=== PATIENT | female | born 1955 | race Caucasian/White ===

== ENCOUNTER → 2022-02-13 13:10 | Outpatient (CLI) | payer OTHER, SELFPAY ==
--- NOTE | ~2022-02-13 | MM_ITS ---
EXAMINATION: MM screening [facility] BI w montrell HISTORY: Screening TECHNIQUE: Craniocaudal and mediolateral oblique 3-D tomosynthesis images were obtained and synthetic 2-D images were generated. CAD analysis was submitted and interpreted. COMPARISON: Comparison to multiple prior studies sequentially, with oldest reviewed study dated 2017. BREAST PARENCHYMAL COMPOSITION: There are scattered areas of fibroglandular density. FINDINGS: There is no evidence of suspicious mass, calcification, or architectural distortion to sugg est malignancy in either breast. There has been no suspicious interval change. IMPRESSION: 1. No mammographic evidence of malignancy. 2. Recommend routine screening mammography in one year. BI-RADS Category 1: Negative Reviewed, dictated and finalized at location A.
== END ==
PROVIDERS: PCP Nurse Practitioner; Visit Provider Nurse Practitioner
DX: Z12.31 Encounter for screening mammogram for malignant neoplasm of breast (principal)
CPT/HCPCS: 77063; 77067

== ENCOUNTER → 2022-04-19 13:12 | Outpatient (CLI) | payer OTHER, SELFPAY ==
--- NOTE | ~2022-04-19 | DEXA_ITS ---
Bone Density Report Name: TRISTIN NEAL Age: 66 Sex: Female Ethnicity: White Date of : 1955 Indication: postmenopausal; screening for osteoporosis; height loss; hysterectomy; Referring Provider: Maxi, Zina Study: Bone densitometry was performed. Exam Date: April 19, 2022 Accession number: [id number] Bone Density: Region BMD T-score Z-score Classification AP Spine (L1-L4) 0.916 -1.2 0.7 Osteopenia Femoral Neck (Left) 0.707 -1.3 0.3 Osteopenia Total Hip (Left) 0.828 -0.9 0.4 Normal Femoral Neck (Right) 0.664 -1.7 -0.1 Osteopenia Total Hip (Right) 0.773 -1.4 0.0 Osteopenia Total Hip Mean 0.801 -1.2 0.2 Osteopenia World Health Organization criteria for BMD impression classify patients as: Normal (T-score at or above -1.0), Osteopenia (T-score between -1.0 and -2.5), or Osteoporosis (T-score at or below -2.5). 10-year Fracture Risk(1): Major Osteoporotic Fracture 9.8% Hip Fracture 1.3% Reported Risk Factors: [place] (), Neck BMD=0.664, BMI=25.4 (1) FRAX(R) Version 3.08. Fracture probability calculated for an untreated patient. Fracture probability may be lower if the patient has received treatment. Clinical Information Provided by Patient: Has used the following medications: Calcium, MULT VIT Has the following medical conditions: Hysterectomy Patient maximum height was 66.5 Menopause Age: 34 Drinks caffeinated beverages Onset of menses at age 13 Number of children 2 Impression: The patient has low bone mass, based on the Right Femoral Neck T-score. The patient has an estimated ten-year risk of hip fracture of 1.3% and an estimated ten-year risk of major fracture of 9.8%, based on the WHO FRAX algorithm. Discussion: BONE DENSITY IS LOW AT ONE OR MORE SKELETAL SITES. This patient's lowest T-score is low at one or more skeletal sites. It meets the World Health Organization's (WHO) criteria for ?low bone mass? (T-score between -1.0 and -2.5). The patient's 10-year risk of fracture as calculated by FRAX is less than the threshold where pharmacological therapy is recommended by the National Osteoporosis Foundation (NOF). However, all treatment decisions require clinical judgment and consideration of individual patient factors, including patient preferences, comorbidities, previous drug use, risk factors not captured in the FRAX model (e.g., frailty, falls, vitamin D deficiency, increased bone turnover, interval significant decline in bone density) and possible under or overestimation of fracture risk by FRAX. The patient should follow a healthful lifestyle (good nutrition with adequate calcium and vitamin D, and appropriate weight-bearing exercise). Follow-Up: Consider repeating this study in 2 to 3 years to reassess this patient's status, or sooner if there is some new
== END ==
PROVIDERS: PCP Nurse Practitioner; Visit Provider Nurse Practitioner
DX: Z78.0 Asymptomatic menopausal state (principal); Z13.820 Encounter for screening for osteoporosis; M85.88 Other specified disorders of bone density and structure, other site; M85.851 Other specified disorders of bone density and structure, right thigh; M85.852 Other specified disorders of bone density and structure, left thigh
CPT/HCPCS: 77080

== ENCOUNTER → 2023-04-25 08:15 | Outpatient (CLI) | payer OTHER, SELFPAY ==
--- NOTE | ~2023-04-25 | MM_ITS ---
EXAMINATION: MM screening [facility]osh BI w montrell HISTORY: Screening mammogram TECHNIQUE: Craniocaudal and mediolateral oblique 3-D tomosynthesis images were obtained and synthetic 2-D images were generated. CAD analysis was submitted and interpreted. COMPARISON: 02/13/2022, 08/26/2019, 07/16/2018 bilateral screening mammogram examinations BREAST PARENCHYMAL COMPOSITION: There are scattered areas of fibroglandular density. FINDINGS: Occasional benign calcifications. There is no evidence of suspicious mass, calcification, o r architectural distortion to suggest malignancy in either breast. There has been no suspicious inter ervin change. IMPRESSION: 1. No mammographic evidence of malignancy. 2. Recommend routine screening mammography in one year. BI-RADS Category 2: Benign finding(s). Reviewed, dictated and finalized at location A.
== END ==
PROVIDERS: PCP Advanced Practice Midwife; Visit Provider Advanced Practice Midwife
DX: Z12.31 Encounter for screening mammogram for malignant neoplasm of breast (principal)
CPT/HCPCS: 77063; 77067

== ENCOUNTER 2024-05-26 12:20 | Outpatient (CLI) | payer OTHER, SELFPAY ==
--- NOTE | ~2024-05-26 | MM_ITS ---
EXAMINATION: MM screening [facility] BI w montrell HISTORY: Screening mammogram TECHNIQUE: Craniocaudal and mediolateral oblique 3-D tomosynthesis images were obtained and synthetic 2-D images were generated. CAD analysis was submitted and interpreted. COMPARISON: 04/25/2023, 02/13/2022, 08/26/2019 BREAST PARENCHYMAL COMPOSITION:Not Dense. There are scattered areas of fibroglandular density. FINDINGS: No suspicious mass, calcification, or architectural distortion are identified in either talib ast to suggest malignancy. There has been no suspicious interval change. IMPRESSION: No mammographic evidence of malignancy. Recommend routine screening mammography in one year. BI-RADS Category 1: Negative Reviewed, dictated and finalized at location .
== END 2024-05-26 12:21 | disposition home or self-care (01) ==
LOC: MICIMG 12:22
PROVIDERS: PCP Advanced Practice Midwife; Visit Provider Advanced Practice Midwife
DX: Z12.31 Encounter for screening mammogram for malignant neoplasm of breast (principal)
CPT/HCPCS: 77063; 77067

== ENCOUNTER 2024-11-23 09:06 | Outpatient (CLI) | payer OTHER, SELFPAY ==
--- NOTE | ~2024-11-23 | DEXA_ITS ---
Bone Density Report Name: TRISTIN NEAL Age: 69 Sex: Female Ethnicity: White Date of : 1955 Indication: postmenopausal; screening for osteoporosis; prior fracture; hysterectomy; Referring Provider: LINNETTE ALFONSO Study: Bone densitometry was performed. Exam Date: November 23, 2024 Accession number: [id number] Bone Density: Region BMD T-score Z-score Classification AP Spine(L1-L4) 0.871 -1.6 0.5 Osteopenia Femoral Neck (Left) 0.668 -1.6 0.1 Osteopenia Total Hip (Left) 0.849 -0.8 0.7 Normal Femoral Neck (Right) 0.637 -1.9 -0.1 Osteopenia Total Hip (Right) 0.753 -1.6 -0.1 Osteopenia Total Hip Mean 0.801 -1.2 0.3 Osteopenia World Health Organization criteria for BMD impression classify patients as: Normal (T-score at or above -1.0), Osteopenia (T-score between -1.0 and -2.5), or Osteoporosis (T-score at or below -2.5). 10-year Fracture Risk: FRAX not reported because: Prior hip or vertebral fracture Clinical Information Provided by Patient: Have had a previous hip or vertebral fracture Has had a low trauma fracture Has used the following medications: Vitamin D, Calcium Has the following medical conditions: Hysterectomy Patient maximum height was 66.0 Menopause Age: 34 No regular weight bearing exercise Drinks caffeinated beverages Onset of menses at age 13 Number of children 2 Impression: The patient has low bone mass, based on the Right Femoral Neck T-score. The patient has risk factors, including: previous fracture. Discussion: INCREASED RISK OF FRACTURE DUE TO HISTORY OF FRACTURE. The patient's previous fracture puts the patient at high risk of a future fracture. In untreated patients, the risk of osteoporotic fracture increases approximately two-fold for each 1.0 SD decrease in T-score. Low bone density is not the only risk factor for fracture; also consider factors such as patient's age, frailty or poor health, risk of falling, risk of injury, previous osteoporotic fracture, family history of osteoporosis, cigarette smoking, low body weight, etc. Not everyone with a low trauma fracture has osteoporosis; osteomalacia and other metabolic bone disorders should also be considered. Patients who have osteoporosis should be evaluated for specific diseases and conditions (secondary causes) that may cause or contribute to bone loss and fracture risk. National Osteoporosis Foundation (NOF) recommends pharmacologic intervention for patients with a prior hip or vertebral fracture regardless of BMD T-score. The patient should follow a healthful lifestyle (good nutrition with adequate calcium and vitamin D, and appropriate weight-bearing exercise). Follow-Up: Consider a repeat BMD and Vertebral Fracture Assessment (VFA) exam in 2 years or sooner if medically necessary, to reassess this patient's status. Reported by: ASUNCION on 11/23/2024 9:44:00 AM. Reviewed, dictated and finalized at location [facility]
--- OUTSIDE RECORDS SUMMARY | 2024-11-23 09:45 | XMS_ITS | Clinical Summary ---
Author Organization [facility] Address [address] 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 This disclosure is being madepursuant to the Care Everywhere program and may not contain all information available regarding this patient. Last updated 18.[facility] [place] Allergies No known active allergies Medications * Be aware that medications may not be up to date on this document. Alwaysverify current medications with the patient. Desvenlafaxine Succinate (PRISTIQ PO) Active benzonatate (TESSALON) 200 MG capsule Take 1 Cap by mouth 3 times daily as needed for Cough 30 Cap 07/16/2016 Active albuterol HFA (PROVENTIL HFA) 108 (90 BASE) MCG/ACT inhaler Inhale 2 Puffs by mouth every 6 hours as needed 1 Inhaler 07/16/2016 Active Family History Medical History Relation Name Comments Cancer - Breast Other pat. 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 Pulse 105 07/16/2016 11:19 AM INVESTMENT STRATEGIST Temperature 36.7 C (98.1 F) 07/16/2016 11:19 AM INVESTMENT STRATEGIST Respiratory Rate 16 07/16/2016 11:19 AM INVESTMENT STRATEGIST Oxygen Saturation 97% 07/16/2016 11:19 AM INVESTMENT STRATEGIST Inhaled Oxygen Concentration - - Weight 83.9 kg (185 lb) 07/16/2016 11:19 AM INVESTMENT STRATEGIST Height 165.1 cm (5' 5 ) 07/16/2016 11:19 AM INVESTMENT STRATEGIST Body Mass Index 30.79 07/16/2016 11:19 AM INVESTMENT STRATEGIST Plan of Treatment Health Maintenance Due Date Last Done Comments BONE DENSITY TESTING 1955 COLOGUARD (AGES 45-75) - COL ON CA SCREENING 1955 COLON MONITORING 1955 COLONOSCOPY - COLON CA SCREENING 1955 CT COLONOGRAPHY - COLON CA SCREENING 1955 Colorectal Cancer Screening 1955 FIT - COLON CA SCREENING 1955 FLEX SIG - COLON CA SCREENING 1955 LIPID TESTING 1955 HEPATITIS C SCREENING 04/16/1973 DTAP/TDAP/TD VACCINES (1 - Tdap) 1974 PNEUMOCOCCAL VACCINE 50+ (1 of 1 - PCV) 2005 ZOSTER VACCINE (1 of 2) 2005 MAMMOGRAM 10/12/2022 10/12/2020 COVID-19 VACCINE (1 - 2023-2 5 season) 2024 DEPRESSION SCREENING 07/29/2024 INFLUENZA VACCINE (Season Ended) 2025 Respiratory Syncytial Virus (RSV) Vaccine Pt: or over 60 yrs (1 - 1-dose 75+ series) 2030 HEPATITIS B VACCINE Aged Out No longe r eligible based on patient's age to complete this topic HIB VACCINE Aged Out No longer eligi ble based on patient's age to complete this topic HPV VACCINE Aged Out No longer eligi ble based on patient's age to complete this topic MENINGOCOCCAL (Group B) VACC INE SHARED DECISION-MAKING Aged Out No longer eligibl e based on patient's age to complete this topic MENINGOCOCCAL GROUPS A/C/Y/W VACCINE Aged Out No longer eligible b ased on patient's age to complete this topic Procedures Procedure Name Priority Date/Time Associated Diagnosis Comments MAMMO BILAT SCREENING Routine 10/12/2020 11:44 AM CDT Visit for screening mammogram from Last 3 Months or Most Recently Relevant to Health Maintenance Results * MAMMO BILAT SCREENING (10/12/2020 11:44 AM CDT) Anatomical Region Laterality Modality Breast Bilateral Mammography 10/14/2020 8:17 AM CDT Impressions 10/14/2020 8:21 AM CDT No mammographic evidence of malignancy in either breast. ASSESSMENT: BIRADS Category 1: Negative mammogram. RECOMMENDATION: Bilateral screening mammogram in one year. Thank you for allowing us to participate in the care of your patient. *Reading Radiologist: Kate Yadav on 10/14/2020 at 8:21 AM Narrative 10/14/2020 8:21 AM CDT EXAMINATION: Digital screening mammogram on 10/12/2020 11:20 AM. Low-dose full-field digital breast tomosynthesis examination was performed with synthetic 2D images and 3D acquisitions. Computer assisted detection was utilized. PRIOR: Multiple prior mammograms, most recently 2019 [facility] now available BREAST PARENCHYMAL DENSITY: There are scattered areas of fibroglandular density. FINDINGS: No suspicious masses, areas of architectural distortion or microcalcifications are evident on synthetic 2D mammogram or tomosynthesis images. There has been no significant interval change since the prior examination. Soha Baird MD MAMMO ORDERABLES Final Result from Last 3 Months or Most Recently Relevant to Health Maintenance Insurance [facility] [employer] Care Teams Mineral Industry Teacher Relationship Specialty Start Date End Date Unknown, Provider PCP - General 07/16/16
== END 2024-11-23 09:07 | disposition home or self-care (01) ==
LOC: ANHIMG 09:11
PROVIDERS: PCP Obstetrics & Gynecology Gynecology; Visit Provider Obstetrics & Gynecology Gynecology
DX: M85.89 Other specified disorders of bone density and structure, multiple sites (principal); Z78.0 Asymptomatic menopausal state; Z13.820 Encounter for screening for osteoporosis
CPT/HCPCS: 77080

== ENCOUNTER 2025-05-27 09:42 | Emergency (ER) | payer OTHER, SELFPAY ==
[2025-05-27 09:51] VITALS: BP 120/69; PULSE 62; RESP 18; TEMP 36.2; O2SAT 100
--- NOTE | 2025-05-27 09:51 | ED_ITS ---
HPI - Extremity Injury (Upper) General Chief Complaint: Extremity Injury, Upper Stated Complaint: LT Wrist Injury Time Seen by Provider: 05/27/25 09:51 Source: patient Mode of arrival: ambulatory Limitations: no limitations History of Present Illness HPI narrative: 70 yo F presents with pain to L wrist since last night. Took ibuprofen and states pain already improving. Denies injury. No hx of gout. Normal ROM and distal NV intact. All systems reviewed and negative except as noted above. Related Data Home Medications ?Medication ?Instructions ?Recorded ?Confirmed ?Last Taken ?Type calcium carbonate (Calcium 600) 600 mg PO DAILY 04/19/25 Unknown History multivitamin 1 tablet PO DAILY 07/03/23 0 04/19/25 Unknown History oxybutynin chloride 5 mg tablet 5 mg PO 04/19/2504/19 Unknown History Allergies Allergy/AdvReac Type Severity Reaction Status Date / Time No Known Allergies Allergy Verified 05/27/25 09:51 [facility] Past Medical History Medical History Allergies Depression Surgical History Surgical History History of hysterectomy (~1988) Family History Family History (Updated 04/19/25 @ 15:26 by Micheal Thornton DO) Mother Hypertension Brain cancer Grandparent Diabetes mellitus Cerebrovascular accident Father ALS (amyotrophic lateral sclerosis) Social History Social History Social History: Caffeine- soda Smoking status: Never smoker Alcohol intake: current Drinks per week: 6 Alcohol use details: Wine Substance use: never Substance use type: does not use Lack of Transportation: No Lack of Food: Never True Current Housing: I Have Housing Concerned About Future Housing: No Difficulty Paying Gas/Electric Bills: No Difficulty Paying for Meds: No Currently Unemployed: No Education: Associate Degree Difficulty w/ Childcare or Family Care: No Living arrangements: with family Gender identity (if verbalized by the patient): Female Agree to blood products: Yes Comments At time of signature, agree with nursing past medical, surgical, social and family history. There is no relevant family history pertinent to the presenting complaint. Exam Narrative: GENERAL: This is a well-nourished, well-developed patient, in no apparent dist ress. HEAD: normocephalic, atraumatic. EYES: PERRL. Sclera clear/white. Vision is grossly intact. EARS: External ears normal NOSE: External nose normal NECK: Neck supple, non-tender without lymphadenopathy, masses or thyromegaly. CARDIOVASCULAR: Regular rate and rhythm without murmurs, gallops, or rubs. RESPIRATORY: Clear to auscultation. Breath sounds equal bilaterally. No wheezes, rales, or rhonchi. SKIN: warm, Dry, intact with no suspicious lesions or rash, good texture and turgor. NEURO: awake, alert, and oriented to person, place and time. There were no obvious focal neurologic abnormalities. EXTREMITIES:mild swelling to L wrist and hand(hand pt remove rings, they appeared tight around fingers). mild erythema and warmth to radial aspect L wrist with tenderness on palpation Course Course Level of Care: Express Care Visit Vital Signs Vital signs: Vital Signs Temperature 36.2 C L 05/27/25 09:51 Pulse Rate 62 05/27/25 09:51 Respiratory Rate 18 05/27/25 09:51 Blood Pressure 120/69 05/27/25 09:51 Pulse Oximetry 100 05/27/25 09:51 Oxygen Delivery Room Air 05/27/25 09:51 Temperature 36.2 C L 05/27/25 09:51 Pulse Rate 62 05/27/25 09:51 Respiratory Rate 18 05/27/25 09:51 Blood Pressure 120/69 05/27/25 09:51 Pulse Oximetry 100 05/27/25 09:51 Oxygen Delivery Room Air 05/27/25 09:51 At time of signature, agree with nursing past medical, surgical, social and family history. There is no relevant family history pertinent to the presenting complaint. MDM - Extremity Injury (Upper) MDM Narrative Medical decision making narrative: will treat with steroids and ibuprofen for gouty arthritis. pt took ibuprofen at home and had good pain relief. ROM and distal NV intact. Discharge Plan Discharge Clinical Impression: Gouty arthritis of left wrist Patient Disposition: Home Condition: Stable Instructions: Gout (ED) Additional Instructions: Take medications as prescribed. Elevate when at rest. Follow-up with your primary care physician if not improving. Patient Language: Romanian Prescriptions: New ibuprofen 600 mg tablet 600 mg PO Q8H 7 Days Qty: 21 0RF methylprednisolone [Medrol (Ruslan)] 4 mg tablets,dose pack See Rx Instructions PO .COMPLEX Qty: 21 0RF Rx Instructions: orally per package directions No Action oxybutynin chloride 5 mg tablet 5 mg PO multivitamin Tablet 1 tablet PO DAILY calcium carbonate [Calcium 600] 600 mg calcium (1,500 mg) tablet 600 mg PO DAILY atorvastatin [Lipitor] 20 mg tablet 20 mg PO DAILY Qty: 90 2RF Follow-up/Referrals: Micheal Thornton DO [Primary Care Provider, Internal Medicine] Time of Disposition: 10:05
--- OUTSIDE RECORDS SUMMARY | 2025-05-27 10:27 | XMS_ITS | Data Portability ---
Author Organization [place] [facility] - IP Address [address] [facility] [address] [place] [address] Assessment Encounter Date Assessment Date Assessment LastModified by Organization Details LastModified Time 07/16/2018 07/16/2018 Annual gynecological exam performed. Patient will come back in a year unless there are new symptoms. [email or web address] Not available 07/16/2018 14:59:24 08/26/2019 08/26/2019 Annual gynecological exam performed. Patient will come back in a year unless there are new symptoms. Not available 08/26/2019 14:50:03 09/28/2020 09/28/2020 Annual gynecological exam performed. Patient will come back in a year unless there are new symptoms. Not available 09/28/2020 08:31:09 Plan of Treatment Reminders Order Date Submit Date Provider Last Modified By Organization Details Last Modified Time Details Appointments None recorded. Lab None recorded. Referral None recorded. Procedures None recorded. Surgeries None recorded. Imaging MAMMO, tomosynthe sis 2020 021 STEFANI Not available 1 09:28:33 MAMMO, tomosynthe sis 2019 020 STEFANI Not available 0 10:30:38 MAMMO, tomosynthe sis 2017 018 [email or web address] Not available 8 15:20:39 Medication Orders desvenlafa xine ER 100 mg tablet,ext ended release 24 hr 2020 021 [facility] #[id number], [address] [facility] [address], [place], [place], [id number], 13:36:30 Pristiq 100 mg tablet,ext ended release 2019 020 [facility] #[id number], [address], [place], [place], [id number], 08:32:05 desvenlafa xine succinate ER 100 mg tablet,ext ended release 24 hr 2017 018 [facility] #[id number], [address], [place], [place], [id number], 08:32:05 Patient TargetsNo targets recorded. Patient Instructions Encounter Date Encounter Id Patient Instructions Last Modified By Organization Details Last Modified Time 07/16/2018 [id number] breast self-exam : care instructions Not available 07/16/2018 15:03:22 calcium and exercise Not available 07/16/2018 15:03:22 vitamin D Not available 2017 15:03:22 08/26/2019 [id number] breast self-exam : care instructions Not available 08/26/2019 15:01:38 calcium and exercise Not available 08/26/2019 15:01:38 vitamin D Not available 2019 15:01:38 09/28/2020 [id number] breast self-exam : care instructions Not available 09/28/2020 13:36:08 calcium and exercise Not available 09/28/2020 13:36:09 vitamin D Not available 2020 13:36:08 need for follow-up Not available 09/28/2020 13:36:08 Reason for Referral None Reported. Results Created Date Observation Date Name Description Value Unit Range Abnormal Flag Note LastModifiedBy Organization Detail LastModifiedTime 07/17/20 18 07/16/2018 MAMMO , tomos ynthe sis No observ ation record ed. [address], [place], [address], 07/18/2018 08:03:39 08/27/19 20 08/26/2019 MAMMO , tomos ynthe sis No observ ation record ed. [email or web address] [address], [place], [address], 09/10/2019 09:56:57 10/15/19 21 10/12/2020 MAMMO , tomos ynthe sis No observ ation record ed. [facility] [address], [place], [address], 10/14/2020 14:57:46 Result Notes Documentation Provider Name and Address Organization Details Recorded Time Mammo, Tomosynthesis : Mammogram Mammogram Context: mammogram date: (08/26/2019) Right: normal Left: normal Ana Rosa brown, [place] [facility] 09/10/2019 09:56:57 Problems No Known Problems Procedures Surgical History Date Name Laterality Status Provider Name and Address Organization Details Recorded Time 10/13/19 21 completed Soha Baird MD [address] [facility] [address] [place], [address], [place] [facility] 10/14/2020 10:52:10 12/12/19 12 Date of Last Pap Smear completed Soha Baird MD [address] [facility] [address] [place], [address], [place] [facility] 06/26/2018 12:18:21 cholecystectomy completed Soha Baird MD [address] [facility] [address] [place], [address], [place] [facility] 06/26/2018 12:20:58 procedure on back completed Soha Baird MD [address] [facility] [address] [place], [address], [place] [facility] 06/26/2018 12:21:17 hysterectomy completed Soha Baird MD [address] [place], [address], [place] [facility] 06/26/2018 12:21:53 Imaging Results None recorded. Procedure Notes None recorded. Medical Equipment None Reported. Allergies No known drug allergies Medications Name Sig Start Date Stop Date Status Note LastModified by Organization Details LastModified Time multivitamin tablet Take by oral route. active Not Available Not Available No t Available azithromycin 250 mg tablet 09/28 completed Not Available Not Available Not Available prednisone 20 mg tablet 09/28 completed Not Available Not Available Not Available penicillin V potassium 500 mg tablet TK 1 T PO QID TILL ALL TAKEN 09/28 completed Not Available Not Available Not Available benzonatate 100 mg capsule 09/28 completed Not Available Not Available Not Available Calcium 500 active Not Available Not A vailable Not Available desvenlafaxin e succinate ER 100 mg tablet,extend ed release 24 hr TAKE 1 TABLET BY MOUTH DAILY 09/28 completed Not Available Not Available Not Available desvenlafaxin e ER 100 mg tablet,extend ed release 24 hr Take 1 tablet by mouth daily 2020 active Not Available Not Available Not Avai lable desvenlafaxin e ER 100 mg tablet,extend ed release 24 hour 09/28 completed Not Available Not Available Not Available Vitals Date Recorded Body height Body mass index (BMI) Body weight Systolic And Diastolic Provider Name and Address Organization Details Last Updated DateTime 08/26/2019 168.91 cm 30.7 kg/m2 34122.33 g 120/70 mm[Hg] Lily Hoffman [place] [facility] 08/26/2019 14:56:32 Date Recorded Body height Body mass index (BMI) Body weight Systolic And Diastolic Provider Name and Address Organization Details Last Updated DateTime 09/28/2020 166.37 cm 31.3 kg/m2 80466.14 g 124/82 mm[Hg] Ana Rosa Romero [place] [facility] 09/28/2020 13:26:58 Date Recorded Body height Body mass index (BMI) Body weight Systolic And Diastolic Provider Name and Address Organization Details Last Updated DateTime 07/16/2018 168.91 cm 31.5 kg/m2 65909.29 g 120/70 mm[Hg] Aleksandra Barajas [place] [facility] 07/16/2018 14:59:43 Social History Question Answer Notes LastModified by Organizat ion Details LastModified Time Tobacco Smoking Status Never Smoker Soha Baird MD [address] [facility] [address] [place] [address], [address], [place] [facility] 06/26/2018 12:20:30 What Was The Date Of Your Most Recent Tobacco Screening? 07/16/2018 Information n ot available 02/19/2019 Sex: Unknown Functional Status Question Answer Note LastModified by Organizat ion Details LastModified Time What is your level of alcohol consumption? Occasional Information not available 06/26/2018 Mental Status None recorded. Family History Relationship Description Onset Age of this Age Resolved Age Notes LastModified by Organization Details LastModified Time Maternal Grandfather Diabetes mellitus Not available 2017 12:19:55 Maternal Grandmother Cerebrovascu lar accident Not available 12:20:05 Maternal Grandmother Hypertensive disorder Not available 2017 12:20:24 Mother Hypertensive disorder Not available 2017 12:20:24 Medical History Condition Response Blood Transfusion Y Thrombophilias Y Gynecological History Statement/Question Response If Post Menopausal, Age at Menopause 54 Date of Last Pap Smear 12/12/2011 Age at Menarche 13 10/12/2020 LMP Unknown Obstetrics History GPAL:G 3 P 2 0 0 2 Type Value Full Term 2 Living 2 Total 3 Past Encounters Encounter ID Performer Location Encounter Start Date Encounter Closed Date Diagnosis/Indication Diagnosis SNOMED-CT Code Diagnosis ICD10 Code Diagnosis IMO Codes Diagnosis Note [id number] Soha Baird MD Main Office [address] [facility] [place] [address] 07/16/2018 14:48:48 07/16/2018 15:20:39 Gynecologic examination 54392695 Z01.419 Screening for malignant neoplasm of breast 710496460 Z12.31 Menopausal symptom 15399 002 N95.1 [id number] Soha Baird MD Main Office [address] [facility] [address] [place] [address] 08/26/2019 14:42:20 08/26/2019 15:11:21 Gynecologic examination 71854931 Z01.419 Menopausal symptom 28236 002 N95.1 Screening for malignant neoplasm of breast 844261769 Z12.31 [id number] Soha Baird MD Main Office [address] [place] [address] [address] [facility] [place] [address] 09/28/2020 13:14:12 09/28/2020 14:11:53 Gynecologic examination 32250910 Z01.419 Screening for malignant neoplasm of breast 424507338 Z12.31 Menopausal symptom 24185 002 N95.1 Health Concerns Section Related Observation LastModified by Organization Detai ls LastModified Time None Recorded Concern Status LastModified by Organization Details LastModified Time None Recorded Advance Directives Directive None Recorded Payers Insurance Date Sequence Insurance Name Policy Number Policy Guevara Covered Member ID Guevara Member ID Guarantor Name 07/25/2020 1 [place] [id number] Alejandra Nails [id number] Alejandra Nails 09/28/2020 1 [employer] [id number] Nikko Nails [id number] Alejandra Nails Notes Date Note Type Note Provider Name and Address Organization Details Recorded Time 07/16/2018 text/html Annual GYNReport ed by PatientHistoryFor history, patient reportsno gynecologic complaints.Genitourina ry symptomsFor urinary symptoms, patient reportsstress incontinence(doing better). Soha Baird MD [address] [place] [address] [address] [place], [place], [address], [facility] [place] [facility] 07/16/2018 15:16:56 08/26/2019 text/html Annual GYNReport ed by PatientHistoryFor history, patient reportsno gynecologic complaintsandno change in interval history.Genitourinary symptomsFor urinary symptoms, patient reportsno hematuriaandno incontinence. For vagina, patient reportsnormal vaginal discharge.Breast symptomsFor breast, patient reportsno breast pain,no breast lump, andno nipple discharge.Endocrine symptomsFor menopausal symptoms, patient reportsno menopausal symptoms.Preventative measuresFor preventive measures, patient reportsencourage self breast examination,encourage regular exercise,encourage regular mammograms starting age 40, andfollowed with q3 year pap smear and high risk hpv typing. Soha Baird MD [address] [place] [address], [address], [place] [facility] 08/26/2019 15:08:00 09/28/2020 text/html Annual GYNReport ed by PatientHistoryFor history, patient reportsno gynecologic complaintsandno change in interval history.Genitourinary symptomsFor urinary symptoms, patient reportsno hematuriaandno incontinence. For vulva, patient reportsno genital lesion. For vagina, patient reportsnormal vaginal discharge.Breast symptomsFor breast, patient reportsno breast pain,no breast lump, andno nipple discharge.Endocrine symptomsFor menopausal symptoms, patient reportsno menopausal symptoms.Psychological symptomsFor psychological symptoms, patient reportsno depressionandno anxiety.Preventative measuresFor preventive measures, patient reportsencourage self breast examination,encourage regular exercise,encourage regular mammograms starting age 40, andfollowed with q3 year pap smear and high risk hpv typing.ROS as noted in the HPI Soha Baird MD [address], [address], [place] [facility] 09/28/2020 13:39:31 OBGyn Episode No OBEpisode recorded.
--- OUTSIDE RECORDS SUMMARY | 2025-05-27 10:27 | XMS_ITS | Clinical Summary ---
Author Organization [facility] Address [address] [place] [address] Care Team Providers Care Beef Boner Name Role Phone Unknown, Provider Primary Care Provider Unavaila ble Source Comments [facility]-owned [facility] and Associated Physician Practices is amultiple site organization consisting of ambulatory clinics and hospital sitesin [place], [place], [place] and [place]. This disclosure is being madepursuant to the Care Everywhere program and may not contain all information available regarding this patient. 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 Gender Identity Not on file Sexual Orientation Not on file Last Filed Vital Signs Vital Sign Reading Time Taken Comments Blood Pressure 110/88 07/16/2016 11:19 AM TECHNICAL CLERK Pulse 105 07/16/2016 11:19 AM TECHNICAL CLERK Temperature 36.7 C (98.1 F) 07/16/2016 11:19 AM TECHNICAL CLERK Respiratory Rate 16 07/16/2016 11:19 AM TECHNICAL CLERK Oxygen Saturation 97% 07/16/2016 11:19 AM TECHNICAL CLERK Inhaled Oxygen Concentration - - Weight 83.9 kg (185 lb) 07/16/2016 11:19 AM TECHNICAL CLERK Height 165.1 cm (5' 5) 07/16/2016 11:19 AM TECHNICAL CLERK Body Mass Index 30.79 07/16/2016 11:19 AM TECHNICAL CLERK Plan of Treatment Health Maintenance Due Date [...] (1 of 2) 2005 MAMMOGRAM 10/12/2022 10/12/2020 DEPRESSION SCREENING 07/29/2024 COVID-19 VACCINE (1 - 2023-2 5 season) 2025 INFLUENZA VACCINE (#1) 2025 Respiratory Syncytial Virus (RSV) Vaccine Pt: [...] PRIOR: Multiple prior mammograms, most recently 2019 [facility] now available BREAST PARENCHYMAL DENSITY: There are scattered areas of fibroglandular density. FINDINGS: No suspicious masses, areas of architectural distortion or microcalcifications are evident on synthetic 2D mammogram or tomosynthesis images. There has been no significant interval change since the prior examination. Soha Baird MD MAMMO ORDERABLES Final Result from Last 3 Months or Most Recently Relevant to Health Maintenance Insurance [facility] [employer] Care Teams Beef Boner Relationship Specialty Start Date End Date Unknown, Provider PCP - General 07/16/16
== END 2025-05-27 09:52 | disposition home or self-care (01) ==
PROVIDERS: Emergency Provider Nurse Practitioner Family; PCP Internal Medicine
DX: M10.9 Gout, unspecified (principal)
CPT/HCPCS: 99213; G0463

== ENCOUNTER 2025-07-08 12:47 | Outpatient (CLI) | payer OTHER, SELFPAY ==
--- NOTE | ~2025-07-08 | MM_ITS ---
EXAMINATION: MM screening josh BI w montrell HISTORY: Screening. TECHNIQUE: Craniocaudal and mediolateral oblique 3-D tomosynthesis images were obtained and synthetic 2-D images were generated. CAD analysis was submitted and interpreted. COMPARISON: 2023, 2022, and 2021. BREAST PARENCHYMAL COMPOSITION: Not Dense: There are scattered areas of fibroglandular FINDINGS: No suspicious masses are seen. There are no suspicious calcifications. No unexplained architectural distortion is seen. There are no skin or nipple abnormalities identified. There is no adenopathy seen on the images submitted. IMPRESSION: No mammographic evidence to suggest malignancy is seen. The patient may return to screening mammography as per ACR guidelines. BI-RADS 1 - Negative. Reviewed, dictated and finalized at location C. [employer]
== END 2025-07-08 12:48 | disposition home or self-care (01) ==
LOC: MICIMG 12:48
PROVIDERS: PCP Internal Medicine; Visit Provider Obstetrics & Gynecology Gynecology
DX: Z12.31 Encounter for screening mammogram for malignant neoplasm of breast (principal)
CPT/HCPCS: 77063; 77067